=== PATIENT | male | born 1945 | race Caucasian/White ===

== ENCOUNTER 2016-11-05 09:27 | Outpatient (CLI) | payer MEDICARE, OTHER ==
[2012-09-10 11:11] VITALS: BP 122/69
[~2016-11-05 09:27] MED LIST: HEPARIN SODIUM,PORCINE 30 UNITS INJ IV SCH; SALINE FLUSH 10 ML DISP.SYRIN IVF SCH; cefTRIAXone SODIUM 2 GM in 0.9 % SODIUM CHLORIDE 100 ML IV SCH
[2016-11-05] MEDS ORDERED: 0.9 % SODIUM CHLORIDE 100 ML IV.SOLN IV ONE (09:30)
[2016-11-05] MEDS ORDERED: HEPARIN SODIUM,PORCINE 30 UNITS INJ IV ONE (09:30)
[2016-11-05] MEDS ORDERED: SALINE FLUSH 10 ML DISP.SYRIN IVF ONE (09:30)
[2016-11-05] MEDS ORDERED: cefTRIAXone SODIUM 1 GM VIAL ONE (09:30)
== END 2016-11-05 09:30 ==
LOC: INF 09:27
PROVIDERS: ATTEND Internal Medicine
DX: K75.0 Abscess of liver (principal)
CPT/HCPCS: 96365; J0696

== ENCOUNTER 2016-11-06 09:24 | Outpatient (CLI) | payer MEDICARE, OTHER ==
[2012-09-10 11:11] VITALS: BP 122/69
[2016-11-06] MEDS ORDERED: HEPARIN SODIUM,PORCINE 30 UNITS INJ IV ONE (09:30)
[2016-11-06] MEDS ORDERED: cefTRIAXone SODIUM 1 GM VIAL ONE (09:30)
[2016-11-06] MEDS ORDERED: SALINE FLUSH 10 ML DISP.SYRIN IVF ONE (09:30)
[2016-11-06] MEDS ORDERED: 0.9 % SODIUM CHLORIDE 100 ML IV.SOLN IV ONE (09:30)
== END 2016-11-06 09:25 ==
LOC: INF 09:24
PROVIDERS: ATTEND Internal Medicine
DX: K75.0 Abscess of liver (principal)
CPT/HCPCS: 96365; J0696

== ENCOUNTER 2016-11-07 09:02 | Outpatient (CLI) | payer MEDICARE, OTHER ==
[2012-09-10 11:11] VITALS: BP 122/69
[~2016-11-07 09:02] MED LIST changes: +0.9 % SODIUM CHLORIDE 100 ML IV.SOLN IV ONE; +HEPARIN SODIUM,PORCINE 30 UNITS INJ IV ONE; -HEPARIN SODIUM,PORCINE 30 UNITS INJ IV SCH; +SALINE FLUSH 10 ML DISP.SYRIN IVF ONE; -SALINE FLUSH 10 ML DISP.SYRIN IVF SCH; +cefTRIAXone SODIUM 1 GM VIAL ONE; -cefTRIAXone SODIUM 2 GM in 0.9 % SODIUM CHLORIDE 100 ML IV SCH
== END 2016-11-07 09:03 ==
LOC: INF 09:02
PROVIDERS: ATTEND Internal Medicine
DX: K75.0 Abscess of liver (principal)
CPT/HCPCS: 96365; J0696

== ENCOUNTER 2016-11-08 09:07 | Outpatient (CLI) | payer MEDICARE, OTHER ==
[2012-09-10 11:11] VITALS: BP 122/69
== END 2016-11-08 09:10 ==
LOC: INF 09:07
PROVIDERS: ATTEND Internal Medicine
DX: K75.0 Abscess of liver (principal)
CPT/HCPCS: 96365; J0696

== ENCOUNTER 2016-11-09 09:00 | Outpatient (CLI) | payer MEDICARE, OTHER ==
[2012-09-10 11:11] VITALS: BP 122/69
== END 2016-11-09 09:02 ==
LOC: INF 09:00
PROVIDERS: ATTEND Internal Medicine
DX: K75.0 Abscess of liver (principal)
CPT/HCPCS: 96365; J0696

== ENCOUNTER 2016-11-10 09:07 | Outpatient (CLI) | payer MEDICARE, OTHER ==
[2012-09-10 11:11] VITALS: BP 122/69
== END 2016-11-10 09:10 ==
LOC: INF 09:07
PROVIDERS: ATTEND Internal Medicine
DX: K75.0 Abscess of liver (principal)
CPT/HCPCS: 96365; J0696

== ENCOUNTER 2016-11-11 08:54 | Outpatient (CLI) | payer MEDICARE, OTHER ==
[2012-09-10 11:11] VITALS: BP 122/69
[2016-11-11] MEDS ORDERED: HEPARIN SODIUM,PORCINE 30 UNITS INJ IV ONE (09:00)
[2016-11-11] MEDS ORDERED: SALINE FLUSH 10 ML DISP.SYRIN IVF ONE (09:00)
[2016-11-11] MEDS ORDERED: cefTRIAXone SODIUM 1 GM VIAL ONE (09:00)
[2016-11-11] MEDS ORDERED: 0.9 % SODIUM CHLORIDE 100 ML IV.SOLN IV ONE (09:00)
[2016-11-11] MEDS ORDERED: cefTRIAXone SODIUM 2 GM in 0.9 % SODIUM CHLORIDE 100 ML IV SCH (09:00)
== END 2016-11-11 08:55 ==
LOC: INF 08:54
PROVIDERS: ATTEND Internal Medicine
DX: K75.0 Abscess of liver (principal)
CPT/HCPCS: 96365; J0696

== ENCOUNTER 2016-11-12 09:03 | Outpatient (CLI) | payer MEDICARE, OTHER ==
[2012-09-10 11:11] VITALS: BP 122/69
[~2016-11-12 09:03] MED LIST changes: +cefTRIAXone SODIUM 2 GM in 0.9 % SODIUM CHLORIDE 100 ML IV SCH
== END 2016-11-12 09:04 ==
LOC: INF 09:03
PROVIDERS: ATTEND Internal Medicine
DX: K75.0 Abscess of liver (principal)
CPT/HCPCS: 96365; J0696

== ENCOUNTER 2016-11-13 09:04 | Outpatient (CLI) | payer MEDICARE, OTHER ==
[2012-09-10 11:11] VITALS: BP 122/69
== END 2016-11-13 09:05 ==
LOC: INF 09:04
PROVIDERS: ATTEND Internal Medicine
DX: K75.0 Abscess of liver (principal)
CPT/HCPCS: 96365; J0696

== ENCOUNTER 2016-11-14 09:20 | Outpatient (CLI) | payer MEDICARE, OTHER ==
[2012-09-10 11:11] VITALS: BP 122/69
[~2016-11-14 09:20] MED LIST changes: -cefTRIAXone SODIUM 2 GM in 0.9 % SODIUM CHLORIDE 100 ML IV SCH
[2016-11-14] MEDS ORDERED: SALINE FLUSH 10 ML DISP.SYRIN IVF ONE (09:48)
[2016-11-15] MEDS ORDERED: cefTRIAXone SODIUM 2 GM in 0.9 % SODIUM CHLORIDE 100 ML IV SCH (09:00)
== END 2016-11-14 09:21 ==
LOC: INF 09:20
PROVIDERS: ATTEND Internal Medicine
DX: K75.0 Abscess of liver (principal)
CPT/HCPCS: 96365; J0696

== ENCOUNTER 2016-11-15 08:59 | Outpatient (CLI) | payer MEDICARE, OTHER ==
[2012-09-10 11:11] VITALS: BP 122/69
[~2016-11-15 08:59] MED LIST changes: -0.9 % SODIUM CHLORIDE 100 ML IV.SOLN IV ONE; -HEPARIN SODIUM,PORCINE 30 UNITS INJ IV ONE; -SALINE FLUSH 10 ML DISP.SYRIN IVF ONE; -cefTRIAXone SODIUM 1 GM VIAL ONE; +cefTRIAXone SODIUM 2 GM in 0.9 % SODIUM CHLORIDE 100 ML IV SCH
[2016-11-15] MEDS ORDERED: SALINE FLUSH 10 ML DISP.SYRIN IVF ONE (09:00)
[2016-11-15] MEDS ORDERED: cefTRIAXone SODIUM 1 GM VIAL ONE (09:00)
[2016-11-15] MEDS ORDERED: HEPARIN SODIUM,PORCINE 30 UNITS INJ IV ONE (09:00)
[2016-11-15] MEDS ORDERED: 0.9 % SODIUM CHLORIDE 100 ML IV.SOLN IV ONE (09:00)
== END 2016-11-15 09:00 ==
LOC: INF 08:59
PROVIDERS: ATTEND Internal Medicine
DX: K75.0 Abscess of liver (principal)
CPT/HCPCS: 96365; J0696

== ENCOUNTER 2016-11-16 12:51 | Outpatient (CLI) | payer MEDICARE, OTHER ==
[2012-09-10 11:11] VITALS: BP 122/69
[~2016-11-16 12:51] MED LIST changes: +0.9 % SODIUM CHLORIDE 100 ML IV.SOLN IV ONE; +HEPARIN SODIUM,PORCINE 30 UNITS INJ IV ONE; +SALINE FLUSH 10 ML DISP.SYRIN IVF ONE; +cefTRIAXone SODIUM 1 GM VIAL ONE; +cefTRIAXone SODIUM 1 GM in 0.9 % SODIUM CHLORIDE 100 ML IV SCH; -cefTRIAXone SODIUM 2 GM in 0.9 % SODIUM CHLORIDE 100 ML IV SCH
== END 2016-11-16 12:52 ==
LOC: INF 12:51
PROVIDERS: ATTEND Internal Medicine
DX: K75.0 Abscess of liver (principal)
CPT/HCPCS: 96365; J0696

== ENCOUNTER 2016-11-17 08:53 | Outpatient (CLI) | payer MEDICARE, OTHER ==
[2012-09-10 11:11] VITALS: BP 122/69
[2016-11-17] MEDS ORDERED: 0.9 % SODIUM CHLORIDE 100 ML IV.SOLN IV ONE (09:00)
[2016-11-17] MEDS ORDERED: cefTRIAXone SODIUM 1 GM in 0.9 % SODIUM CHLORIDE 100 ML IV SCH (09:00)
[2016-11-17] MEDS ORDERED: SALINE FLUSH 10 ML DISP.SYRIN IVF ONE (09:00)
[2016-11-17] MEDS ORDERED: HEPARIN SODIUM,PORCINE 30 UNITS INJ IV ONE (09:00)
[2016-11-17] MEDS ORDERED: cefTRIAXone SODIUM 1 GM VIAL ONE ×2 (09:00→09:09)
[2016-11-17] MEDS ORDERED: 0.9 % SODIUM CHLORIDE 50 ML IV ONE (09:09)
[2016-11-17] MEDS ORDERED: cefTRIAXone SODIUM 2 GM in 0.9 % SODIUM CHLORIDE 100 ML IV SCH (15:40)
== END 2016-11-17 08:54 ==
LOC: INF 08:53
PROVIDERS: ATTEND Internal Medicine
DX: K75.0 Abscess of liver (principal)
CPT/HCPCS: 96365; J0696

== ENCOUNTER 2016-11-18 08:59 | Outpatient (CLI) | payer MEDICARE, OTHER ==
[2012-09-10 11:11] VITALS: BP 122/69
[2016-11-18] MEDS ORDERED: cefTRIAXone SODIUM 1 GM VIAL ONE (09:00)
[2016-11-18] MEDS ORDERED: SALINE FLUSH 10 ML DISP.SYRIN IVF ONE (09:00)
[2016-11-18] MEDS ORDERED: 0.9 % SODIUM CHLORIDE 100 ML IV.SOLN IV ONE (09:00)
[2016-11-18] MEDS ORDERED: HEPARIN SODIUM,PORCINE 30 UNITS INJ IV ONE (09:00)
[2016-11-19] MEDS ORDERED: cefTRIAXone SODIUM 2 GM in 0.9 % SODIUM CHLORIDE 100 ML IV SCH (09:00)
== END 2016-11-18 09:00 ==
LOC: INF 08:59
PROVIDERS: ATTEND Internal Medicine
DX: K75.0 Abscess of liver (principal)
CPT/HCPCS: 96365; J0696

== ENCOUNTER 2016-11-19 09:00 | Outpatient (CLI) | payer MEDICARE, OTHER ==
[2012-09-10 11:11] VITALS: BP 122/69
[~2016-11-19 09:00] MED LIST changes: -cefTRIAXone SODIUM 1 GM in 0.9 % SODIUM CHLORIDE 100 ML IV SCH
== END 2016-11-19 09:02 ==
LOC: INF 09:00
PROVIDERS: ATTEND Internal Medicine
DX: K75.0 Abscess of liver (principal)
CPT/HCPCS: 96365; J0696

== ENCOUNTER 2016-11-20 08:45 | Outpatient (CLI) | payer MEDICARE, OTHER ==
[2012-09-10 11:11] VITALS: BP 122/69
[2016-11-20] MEDS ORDERED: SALINE FLUSH 10 ML DISP.SYRIN IVF ONE (09:00)
[2016-11-20] MEDS ORDERED: cefTRIAXone SODIUM 1 GM VIAL ONE (09:00)
[2016-11-20] MEDS ORDERED: 0.9 % SODIUM CHLORIDE 100 ML IV.SOLN IV ONE (09:00)
[2016-11-20] MEDS ORDERED: HEPARIN SODIUM,PORCINE 30 UNITS INJ IV ONE (09:00)
== END 2016-11-20 08:46 ==
LOC: INF 08:45
PROVIDERS: ATTEND Internal Medicine
DX: K75.0 Abscess of liver (principal)
CPT/HCPCS: 96365; J0696

== ENCOUNTER 2016-11-21 09:18 | Outpatient (CLI) | payer MEDICARE, OTHER ==
[2012-09-10 11:11] VITALS: BP 122/69
[2016-11-21] MEDS ORDERED: cefTRIAXone SODIUM 2 GM in 0.9 % SODIUM CHLORIDE 100 ML IV ONE (10:00)
== END 2016-11-21 09:20 ==
LOC: INF 09:18
PROVIDERS: ATTEND Internal Medicine
DX: K75.0 Abscess of liver (principal)
CPT/HCPCS: 96365; J0696

== ENCOUNTER 2016-11-22 08:53 | Outpatient (CLI) | payer MEDICARE, OTHER ==
[2012-09-10 11:11] VITALS: BP 122/69
[2016-11-22] MEDS ORDERED: 0.9 % SODIUM CHLORIDE 100 ML IV.SOLN IV ONE (09:00)
[2016-11-22] MEDS ORDERED: SALINE FLUSH 10 ML DISP.SYRIN IVF ONE (09:00)
[2016-11-22] MEDS ORDERED: cefTRIAXone SODIUM 1 GM VIAL ONE (09:00)
[2016-11-22] MEDS ORDERED: HEPARIN SODIUM,PORCINE 30 UNITS INJ IV ONE (09:00)
== END 2016-11-22 08:54 ==
LOC: INF 08:53
PROVIDERS: ATTEND Internal Medicine
DX: K75.0 Abscess of liver (principal)
CPT/HCPCS: 96365; J0696

== ENCOUNTER 2016-11-23 08:57 | Outpatient (CLI) | payer MEDICARE, OTHER ==
[2012-09-10 11:11] VITALS: BP 122/69
[2016-11-23] MEDS ORDERED: HEPARIN SODIUM,PORCINE 30 UNITS INJ IV ONE (09:00)
[2016-11-23] MEDS ORDERED: SALINE FLUSH 10 ML DISP.SYRIN IVF ONE (09:00)
[2016-11-23] MEDS ORDERED: cefTRIAXone SODIUM 1 GM VIAL ONE (09:00)
[2016-11-23] MEDS ORDERED: cefTRIAXone SODIUM 2 GM in 0.9 % SODIUM CHLORIDE 100 ML IV SCH (09:00)
[2016-11-23] MEDS ORDERED: 0.9 % SODIUM CHLORIDE 100 ML IV.SOLN IV ONE (09:00)
== END 2016-11-23 09:00 ==
LOC: INF 08:57
PROVIDERS: ATTEND Internal Medicine
DX: K75.0 Abscess of liver (principal)
CPT/HCPCS: 96365; J0696

== ENCOUNTER 2016-11-24 08:51 | Outpatient (CLI) | payer MEDICARE, OTHER ==
[2012-09-10 11:11] VITALS: BP 122/69
[2016-11-24] MEDS ORDERED: HEPARIN SODIUM,PORCINE 30 UNITS INJ IV ONE (09:00)
[2016-11-24] MEDS ORDERED: cefTRIAXone SODIUM 1 GM VIAL ONE (09:00)
[2016-11-24] MEDS ORDERED: 0.9 % SODIUM CHLORIDE 100 ML IV.SOLN IV ONE (09:00)
[2016-11-24] MEDS ORDERED: SALINE FLUSH 10 ML DISP.SYRIN IVF ONE (09:00)
[2016-11-24] MEDS ORDERED: cefTRIAXone SODIUM 2 GM in 0.9 % SODIUM CHLORIDE 100 ML IV SCH (09:00)
== END 2016-11-24 08:52 ==
LOC: INF 08:51
PROVIDERS: ATTEND Internal Medicine
DX: K75.0 Abscess of liver (principal)
CPT/HCPCS: 96365; J0696

== ENCOUNTER 2016-11-25 07:55 | Outpatient (CLI) | payer MEDICARE, OTHER ==
[2012-09-10 11:11] VITALS: BP 122/69
[2016-11-25] MEDS ORDERED: HEPARIN SODIUM,PORCINE 30 UNITS INJ IV ONE (09:00)
[2016-11-25] MEDS ORDERED: 0.9 % SODIUM CHLORIDE 100 ML IV.SOLN IV ONE (09:00)
[2016-11-25] MEDS ORDERED: cefTRIAXone SODIUM 1 GM VIAL ONE (09:00)
[2016-11-25] MEDS ORDERED: cefTRIAXone SODIUM 2 GM in 0.9 % SODIUM CHLORIDE 100 ML IV SCH (09:00)
[2016-11-25] MEDS ORDERED: SALINE FLUSH 10 ML DISP.SYRIN IVF ONE (09:00)
== END 2016-11-25 07:56 ==
LOC: INF 07:55
PROVIDERS: ATTEND Internal Medicine
DX: K75.0 Abscess of liver (principal)
CPT/HCPCS: 96365; J0696

== ENCOUNTER 2016-11-26 08:45 | Outpatient (CLI) | payer MEDICARE, OTHER ==
[2012-09-10 11:11] VITALS: BP 122/69
[2016-11-26] MEDS ORDERED: 0.9 % SODIUM CHLORIDE 100 ML IV.SOLN IV ONE (09:00)
[2016-11-26] MEDS ORDERED: SALINE FLUSH 10 ML DISP.SYRIN IVF ONE (09:00)
[2016-11-26] MEDS ORDERED: HEPARIN SODIUM,PORCINE 30 UNITS INJ IV ONE (09:00)
[2016-11-26] MEDS ORDERED: cefTRIAXone SODIUM 1 GM VIAL ONE (09:00)
== END 2016-11-26 08:46 ==
LOC: INF 08:45
PROVIDERS: ATTEND Internal Medicine
DX: K75.0 Abscess of liver (principal)
CPT/HCPCS: 96365; J0696

== ENCOUNTER 2016-11-27 08:34 | Outpatient (CLI) | payer MEDICARE, OTHER ==
[2012-09-10 11:11] VITALS: BP 122/69
[2016-11-27] MEDS ORDERED: 0.9 % SODIUM CHLORIDE 100 ML IV.SOLN IV ONE (09:00)
[2016-11-27] MEDS ORDERED: cefTRIAXone SODIUM 1 GM VIAL ONE (09:00)
[2016-11-27] MEDS ORDERED: HEPARIN SODIUM,PORCINE 30 UNITS INJ IV ONE (09:00)
[2016-11-27] MEDS ORDERED: SALINE FLUSH 10 ML DISP.SYRIN IVF ONE (09:00)
== END 2016-11-27 08:36 ==
LOC: INF 08:34
PROVIDERS: ATTEND Pediatrics
DX: K75.0 Abscess of liver (principal)
CPT/HCPCS: 96365; J0696

== ENCOUNTER 2016-11-28 08:47 | Outpatient (CLI) | payer MEDICARE, OTHER ==
[2012-09-10 11:11] VITALS: BP 122/69
[~2016-11-28 08:47] MED LIST changes: +0.9 % SODIUM CHLORIDE 100 ML IV ONE; -0.9 % SODIUM CHLORIDE 100 ML IV.SOLN IV ONE; -HEPARIN SODIUM,PORCINE 30 UNITS INJ IV ONE
[2016-11-28] MEDS ORDERED: cefTRIAXone SODIUM 2 GM in 0.9 % SODIUM CHLORIDE 100 ML IV SCH (09:00)
[2016-11-28] MEDS ORDERED: SALINE FLUSH 10 ML DISP.SYRIN IVF ONE (09:00)
[2016-11-28] MEDS ORDERED: cefTRIAXone SODIUM 1 GM VIAL ONE (09:00)
[2016-11-28] MEDS ORDERED: 0.9 % SODIUM CHLORIDE 100 ML IV.SOLN IV ONE (09:00)
[2016-11-28] MEDS ORDERED: HEPARIN SODIUM,PORCINE 30 UNITS INJ IV ONE (09:00)
== END 2016-11-28 08:50 ==
LOC: INF 08:47
PROVIDERS: ATTEND Pediatrics
DX: K75.0 Abscess of liver (principal)
CPT/HCPCS: J0696 ×3; 96365

== ENCOUNTER 2016-11-29 08:49 | Outpatient (CLI) | payer MEDICARE, OTHER ==
[2012-09-10 11:11] VITALS: BP 122/69
[~2016-11-29 08:49] MED LIST changes: -0.9 % SODIUM CHLORIDE 100 ML IV ONE; +HEPARIN SODIUM,PORCINE 30 UNITS INJ IV ONE; -cefTRIAXone SODIUM 1 GM VIAL ONE
[2016-11-29] MEDS ORDERED: SALINE FLUSH 10 ML DISP.SYRIN IVF ONE ×2 (08:56→09:00)
[2016-11-29] MEDS ORDERED: HEPARIN SODIUM,PORCINE 30 UNITS INJ IV ONE ×2 (08:56→09:00)
[2016-11-29] MEDS ORDERED: cefTRIAXone SODIUM 1 GM VIAL ONE (09:00)
[2016-11-29] MEDS ORDERED: 0.9 % SODIUM CHLORIDE 100 ML IV.SOLN IV ONE (09:00)
== END 2016-11-29 08:50 ==
LOC: INF 08:49
PROVIDERS: ATTEND Pediatrics
DX: K75.0 Abscess of liver (principal)
CPT/HCPCS: 96365; J0696

== ENCOUNTER 2016-11-30 08:56 | Outpatient (CLI) | payer MEDICARE, OTHER ==
[2012-09-10 11:11] VITALS: BP 122/69
[2016-11-30] MEDS ORDERED: SALINE FLUSH 10 ML DISP.SYRIN IVF ONE (09:00)
[2016-11-30] MEDS ORDERED: 0.9 % SODIUM CHLORIDE 100 ML IV.SOLN IV ONE (09:00)
[2016-11-30] MEDS ORDERED: cefTRIAXone SODIUM 2 GM in 0.9 % SODIUM CHLORIDE 100 ML IV SCH (09:00)
[2016-11-30] MEDS ORDERED: HEPARIN SODIUM,PORCINE 30 UNITS INJ IV ONE (09:00)
[2016-11-30] MEDS ORDERED: cefTRIAXone SODIUM 1 GM VIAL ONE (09:00)
[2016-12-01 14:03] VITALS: BP 136/107
== END 2016-11-30 08:57 ==
LOC: INF 08:56
PROVIDERS: ATTEND Pediatrics
DX: K75.0 Abscess of liver (principal)
CPT/HCPCS: 96365; J0696

== ENCOUNTER 2016-12-01 08:56 | Outpatient (CLI) | payer MEDICARE, OTHER ==
[2012-09-10 11:11] VITALS: BP 122/69
[2016-12-01] MEDS ORDERED: HEPARIN SODIUM,PORCINE 30 UNITS INJ IV ONE (09:00)
[2016-12-01] MEDS ORDERED: cefTRIAXone SODIUM 1 GM VIAL ONE (09:00)
[2016-12-01] MEDS ORDERED: SALINE FLUSH 10 ML DISP.SYRIN IVF ONE (09:00)
[2016-12-01] MEDS ORDERED: cefTRIAXone SODIUM 2 GM in 0.9 % SODIUM CHLORIDE 100 ML IV SCH (09:00)
[2016-12-01] MEDS ORDERED: 0.9 % SODIUM CHLORIDE 100 ML IV.SOLN IV ONE (09:00)
[2016-12-01 14:03] VITALS: BP 136/107
== END 2016-12-01 08:57 ==
LOC: INF 08:56
PROVIDERS: ATTEND Pediatrics
DX: Z53.9 Procedure and treatment not carried out, unspecified reason (principal)
CPT/HCPCS: J0696

== ENCOUNTER → 2016-12-01 | Emergency (ER) | payer MEDICARE, OTHER ==
[~2016-12-01] MED LIST changes: +0.9 % SODIUM CHLORIDE 500 ML IV ONE; +ASPIRIN 81 MG CHEW TAB PO ONE; +HEPARIN SODIUM 5000 UNIT/1 ML IV ONE; -HEPARIN SODIUM,PORCINE 30 UNITS INJ IV ONE; +HEPARIN SODIUM,PORCINE/D5W 20,000 UNIT in PREMIX BAG 1 BAG IV ONE; -SALINE FLUSH 10 ML DISP.SYRIN IVF ONE
--- NOTE | 2016-12-01 10:01 | ED Physician Documentation ---
General Adult - HISTORIAN Historian: patient - HPI Stated Complaint: chest pain, sob Chief Complaint: General Adult Onset: minutes Timing: still present Severity: moderate Further Comments: yes (Pt is a 71 yo male who had sob and some chest heaviness while walking from his car to the infusion clinic. Pt is getting abx infusions for a liver abscess. Pt felt dizzy and sob and had to stop and sit down. Pt had some slight nausea and some slight chest pressure. No diaphoresis. Pt does not have previous cardiac hx. 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 Pt is tx'd with Rocephin 2 gm IV daily via PICC line and with Flagyl daily.) - ROS CONST: weakness, other (dizziness) EYES/ENT: none CVS/RESP: chest pain (heaviness), shortness of breath GI/: nausea MS/SKIN/LYMPH: none NEURO/PSYCH: dizziness - PAST HX Past History: hypertension, other (DMII, HLD, Liver abscess, migraine, early Alzheimer's, TBI) Other History: none Surgeries/Procedures: other (appendectomy, tonsillectomy, lumbar fusion) Allergies/Adverse Reactions: Allergies Allergy/AdvReac Type Severity Reaction Status Date / Time No Known Allergies Allergy Verified 11/19/16 18:05 Home Medications: Ambulatory Orders Medication Instructions Recorded Metoprolol Succinate [Toprol Xl] 100 mg PO DAILY 09/05/12 Rosuvastatin Calcium [Crestor] 10 mg PO DAILY 09/05/12 Butalb/Acetaminophen/Caffeine 1 tab PO TID PRN MDD 3 tabs 12/01/16 [[id number]-[id number] 50-325-40] Donepezil HCl [Donepezil HCl] 10 mg PO DAILY 12/01/16 Fexofenadine HCl [Cierra] 180 mg PO DAILY 12/01/16 Metronidazole [Flagyl] 500 mg PO BID 12/01/16 cefTRIAXone SODIUM [Rocephin] 2 gm IJ DAILY 12/01/16 - SOCIAL HX Smoking History: non-smoker - FAMILY HX Family History: No - VITAL SIGNS Vital Signs: Vital Signs Temp Pulse Resp BP Pulse Ox 122/69 09/10/12 11:09 - REVIEWED ASSESSMENTS Nursing Assessment Reviewed: Yes Vitals Reviewed: Yes Progress - Progress Progress: ASA [address] Chest with PE protocol: 1. Saddle embolus with large pulmonary emboli in the main pulmonary arteries greater on the left. 2. Right ventricular strain. Pt stable. Heparin 5000 units bolus. Transfer to [facility], Dr. Tracy Ma - EKG/XRAY/CT EKG: rhythm (sinus tachycardia DC=741; normal [place] interval; normal axis.) XRAY: chest (Low lung volumes, possibly related to obesity.) ED Results Lab/Radiology - Orders Orders: ED Orders Category Date Time Status Continuous EKG monitoring Q30M Care 12/01/16 09:55 Ordered Continuous Pulse Oximetry Q30M Care 12/01/16 09:[address] Saline Lock/IV NOW Care 12/01/16 09:55 Ordered CHEST 1 VIEW [RAD] Stat Exams 12/01/16 09:55 Ordered CBC/PLATELET/DIFF Routine Lab 12/01/16 09:55 Ordered CKMB Stat Lab 12/01/16 Ordered CMP Routine Lab 12/01/16 09:55 Ordered CREATINE KINASE Routine Lab 12/01/16 09:55 Ordered TROPONIN I (cTnI) Stat Lab 12/01/16 09:55 Ordered Aspirin Med 12/01/16 09:55 Once 324 mg PO NOW ONE Oxygen Daily Oxygen 12/01/16 10:00 Ordered EKG WITH COMPARISON Stat Ther 12/01/16 09:55 Ordered General Adult Physical Exam - PHYSICAL EXAM GENERAL APPEARANCE: mild distress EENT: pharynx normal NECK: normal inspection, supple RESPIRATORY: no resp distress, chest non-tender, breath sounds normal CVS: bradycardia ABDOMEN: soft, no organomegaly, normal bowel sounds BACK: normal inspection, no CVA tenderness SKIN: warm/dry, normal color EXTREMITIES: non-tender, normal range of motion, no evidence of injury, no edema NEURO: oriented X3, motor nml, sensation nml Discharge Clincal Impression: Pulmonary embolism Qualifiers: Pulmonary embolism type: saddle Chronicity: acute Acute cor pulmonale presence : with acute cor pulmonale Qualified Code(s): I26.02 - Saddle embolus of pulmonary artery with acute cor pulmonale Referrals: Tracy Ma MD [Primary Care Provider] - 2 Days Home Medications: Ambulatory Orders Metoprolol Succinate [Toprol Xl] 100 mg PO DAILY 09/05/12 Rosuvastatin Calcium [Crestor] 10 mg PO DAILY 09/05/12 Butalb/Acetaminophen/Caffeine [Mvarxb-Hzjgoypl-Jlgx 50-325-40] 1 tab PO TID PRN MDD 3 tabs 12/01/16 Donepezil HCl [Donepezil HCl] 10 mg PO DAILY 12/01/16 Fexofenadine HCl [Ceirra] 180 mg PO DAILY 12/01/16 Metronidazole [Flagyl] 500 mg PO BID 12/01/16 cefTRIAXone SODIUM [Rocephin] 2 gm IJ DAILY 12/01/16 Condition: Stable Disposition: 02 XFER SHT-TRM HOSP Decision to Admit: NO Decision Time: 13:05
[2016-12-01 10:23] LABS: BASOPHILS % 0.4 (0.0-1.5); EOSINOPHILS % 0.7 % (0.0-6.8); MEAN CORPUSCULAR HEMOGLOBIN 26.2 pg (28.0-34.0); MEAN CORPUSCULAR VOLUME 84.3 fl (80.0-100.0); MONOCYTES % 4.6 % (0.0-11.0); NEUTROPHILS # 8.6 # k/uL (1.4-7.7)
[2016-12-01 10:25] LABS: eGFR (African) > 60; eGFR (Non-African) > 60
[2016-12-01 14:03] VITALS: BP 136/107
--- NOTE | 2016-12-01 20:16 | Diagnostic Imaging Report ---
[facility] [id number] [facility] [address] [place], [place]. [address] ~ ~ ~ ~ Report Submission Date: December 01, 2016 10:54:47 AM CDT Patient ~ Study Name: FATOUMATA RICO ~ Date: December 01, 2016 10:00:56 AM CDT ~ Modality Type: CR Gender: M ~ Description: CHEST : 47 ~ Institution: [facility] Physician MARK ESPINO ~ ~ ~ PORTABLE CHEST HISTORY: ~ CHEST PAIN AND WEAKNESS FINDINGS: ~ A superior vena cava vascular access catheter, low lung volumes, obesity, and hiatal hernia are observed. ~The lungs are clear. ~No pleural effusions are observed. ~Heart size and pulmonary vascularity are normal. ~Osseous structures are unremarkable. IMPRESSION: ~ Low lung volumes, possibly related to obesity. ~ Hiatal hernia and superior vena cava PICC. ~ Electronically signed on December 01, 2016 10:54:47 AM CDT by: Sharif MUNOZ
--- NOTE | 2016-12-01 20:19 | Diagnostic Imaging Report ---
MARK ESPINO~ [facility] [address] [facility] [address] [place] [address]. [address] ~ ~ ~ ~ Report Submission Date: December 01, 2016 12:41:16 PM CDT Patient ~ Study Name: FATOUMATA RICO ~ Date: December 01, 2016 12:07:19 PM CDT ~ Modality Type: CT\SR Gender: M ~ Description: CT ANGIOGRAPHY CHEST 7 : 47 ~ Institution: [facility] Physician: MARK ESPINO ~ ~ ~ ~ CT angiography of the chest Clinical history: ~Elevated D-dimer. ~Shortness of breath. ~Chest pain. ~Rule out pulmonary embolus. Contrast administered: ~94 ml Omnipaque-300. Technique: ~CT pulmonary angiography is performed with intravenous infusion of contrast. ~Sliding coronal and sagittal MIP reconstructions are performed by the technologist. Findings: ~The lungs are free of coalescent infiltrate. ~The central airways are patent. ~Motion artifact blurs the vascular structures in the lung bases. ~ There is a saddle pulmonary embolus extending into the main pulmonary arteries bilaterally that is more extensive on the left essentially filling the left lower lobe pulmonary artery with large embolus in the left upper lobe. ~There are small emboli in the right lower and upper lobe arteries. ~There is bowing of the interventricular septum into the left ventricle consistent with right ventricular strain. Impression: ~ 1. ~Saddle embolus with large pulmonary emboli in the main pulmonary arteries greater on the left. ~ 2. ~Right ventricular strain. 3. ~Critical results phoned to the emergency room physician at 1238 hours. ~ Electronically signed on December 01, 2016 12:41:16 PM CDT by: Nahun MUNOZ
== END | disposition short-term general hospital (02) ==
LOC: ED 09:50
DX: I26.02 Saddle embolus of pulmonary artery with acute cor pulmonale (principal)
CPT/HCPCS: 71010; 71275; 80053; 82550; 82553; 83880; 84484; 85025; 85379; 85610; 85730; 93005; J1644; J7060; Q9966; 96374; 99284; S1016

== ENCOUNTER 2016-12-08 08:45 | Outpatient (CLI) | payer MEDICARE, OTHER ==
[2016-12-08] MEDS ORDERED: cefTRIAXone SODIUM 1 GM VIAL ONE (09:00)
[2016-12-08] MEDS ORDERED: HEPARIN SODIUM,PORCINE 30 UNITS INJ IV ONE (09:00)
[2016-12-08] MEDS ORDERED: 0.9 % SODIUM CHLORIDE 100 ML IV.SOLN IV ONE (09:00)
[2016-12-08] MEDS ORDERED: cefTRIAXone SODIUM 2 GM in 0.9 % SODIUM CHLORIDE 100 ML IV SCH (09:00)
[2016-12-08] MEDS ORDERED: SALINE FLUSH 10 ML DISP.SYRIN IVF ONE (09:00)
== END 2016-12-08 08:46 ==
LOC: INF 08:45
PROVIDERS: ATTEND Pediatrics
DX: K75.0 Abscess of liver (principal)
CPT/HCPCS: 96365; J0696

== ENCOUNTER 2016-12-09 09:04 | Outpatient (CLI) | payer MEDICARE, OTHER ==
[~2016-12-09 09:04] MED LIST changes: +0.9 % SODIUM CHLORIDE 100 ML IV.SOLN IV ONE; -0.9 % SODIUM CHLORIDE 500 ML IV ONE; -ASPIRIN 81 MG CHEW TAB PO ONE; -HEPARIN SODIUM 5000 UNIT/1 ML IV ONE; +HEPARIN SODIUM,PORCINE 30 UNITS INJ IV ONE; -HEPARIN SODIUM,PORCINE/D5W 20,000 UNIT in PREMIX BAG 1 BAG IV ONE; +SALINE FLUSH 10 ML DISP.SYRIN IVF ONE; +cefTRIAXone SODIUM 1 GM VIAL ONE; +cefTRIAXone SODIUM 2 GM in 0.9 % SODIUM CHLORIDE 100 ML IV SCH
== END 2016-12-09 09:05 ==
LOC: INF 09:04
PROVIDERS: ATTEND Pediatrics
DX: K75.0 Abscess of liver (principal)
CPT/HCPCS: 96365; J0696

== ENCOUNTER 2016-12-10 08:34 | Outpatient (CLI) | payer MEDICARE, OTHER ==
[2016-12-10] MEDS ORDERED: cefTRIAXone SODIUM 1 GM VIAL ONE (09:00)
[2016-12-10] MEDS ORDERED: SALINE FLUSH 10 ML DISP.SYRIN IVF ONE (09:00)
[2016-12-10] MEDS ORDERED: HEPARIN SODIUM,PORCINE 30 UNITS INJ IV ONE (09:00)
[2016-12-10] MEDS ORDERED: 0.9 % SODIUM CHLORIDE 100 ML IV.SOLN IV ONE (09:00)
[2016-12-10] MEDS ORDERED: cefTRIAXone SODIUM 2 GM in 0.9 % SODIUM CHLORIDE 100 ML IV SCH (09:00)
== END 2016-12-10 08:35 ==
LOC: INF 08:34
PROVIDERS: ATTEND Pediatrics
DX: K75.0 Abscess of liver (principal)
CPT/HCPCS: 96365; J0696

== ENCOUNTER 2016-12-11 08:38 | Outpatient (CLI) | payer MEDICARE, OTHER ==
[~2016-12-11 08:38] MED LIST changes: -0.9 % SODIUM CHLORIDE 100 ML IV.SOLN IV ONE; -HEPARIN SODIUM,PORCINE 30 UNITS INJ IV ONE; -SALINE FLUSH 10 ML DISP.SYRIN IVF ONE; -cefTRIAXone SODIUM 1 GM VIAL ONE
[2016-12-11] MEDS ORDERED: HEPARIN SODIUM,PORCINE 30 UNITS INJ IV ONE (09:00)
[2016-12-11] MEDS ORDERED: SALINE FLUSH 10 ML DISP.SYRIN IVF ONE (09:00)
[2016-12-11] MEDS ORDERED: cefTRIAXone SODIUM 1 GM VIAL ONE (09:00)
[2016-12-11] MEDS ORDERED: 0.9 % SODIUM CHLORIDE 100 ML IV.SOLN IV ONE (09:00)
== END 2016-12-11 08:40 ==
LOC: INF 08:38
PROVIDERS: ATTEND Pediatrics
DX: K75.0 Abscess of liver (principal)
CPT/HCPCS: 96365; J0696

== ENCOUNTER 2016-12-12 08:56 | Outpatient (CLI) | payer MEDICARE, OTHER ==
[2016-12-12] MEDS ORDERED: HEPARIN SODIUM,PORCINE 30 UNITS INJ IV ONE (09:00)
[2016-12-12] MEDS ORDERED: SALINE FLUSH 10 ML DISP.SYRIN IVF ONE (09:00)
[2016-12-12] MEDS ORDERED: 0.9 % SODIUM CHLORIDE 100 ML IV.SOLN IV ONE (09:00)
[2016-12-12] MEDS ORDERED: cefTRIAXone SODIUM 1 GM VIAL ONE (09:00)
[2016-12-12] MEDS ORDERED: cefTRIAXone SODIUM 2 GM in 0.9 % SODIUM CHLORIDE 100 ML IV SCH (09:00)
== END 2016-12-12 08:57 ==
LOC: INF 08:56
PROVIDERS: ATTEND Pediatrics
DX: K75.0 Abscess of liver (principal)
CPT/HCPCS: 96365; J0696

== ENCOUNTER 2016-12-13 08:37 | Outpatient (CLI) | payer MEDICARE, OTHER ==
[2016-12-13] MEDS ORDERED: cefTRIAXone SODIUM 2 GM in 0.9 % SODIUM CHLORIDE 100 ML IV SCH (09:00)
[2016-12-13] MEDS ORDERED: 0.9 % SODIUM CHLORIDE 100 ML IV.SOLN IV ONE (09:00)
[2016-12-13] MEDS ORDERED: cefTRIAXone SODIUM 1 GM VIAL ONE (09:00)
[2016-12-13] MEDS ORDERED: SALINE FLUSH 10 ML DISP.SYRIN IVF ONE (09:00)
[2016-12-13] MEDS ORDERED: HEPARIN SODIUM,PORCINE 30 UNITS INJ IV ONE (09:00)
== END 2016-12-13 08:40 ==
LOC: INF 08:37
PROVIDERS: ATTEND Pediatrics
DX: K75.0 Abscess of liver (principal)
CPT/HCPCS: 96365; J0696

== ENCOUNTER 2016-12-14 08:36 | Outpatient (CLI) | payer MEDICARE, OTHER ==
[2016-12-14] MEDS ORDERED: HEPARIN SODIUM,PORCINE 30 UNITS INJ IV ONE (09:00)
[2016-12-14] MEDS ORDERED: cefTRIAXone SODIUM 2 GM in 0.9 % SODIUM CHLORIDE 100 ML IV SCH (09:00)
[2016-12-14] MEDS ORDERED: SALINE FLUSH 10 ML DISP.SYRIN IVF ONE (09:00)
[2016-12-14] MEDS ORDERED: 0.9 % SODIUM CHLORIDE 100 ML IV.SOLN IV ONE (09:00)
[2016-12-14] MEDS ORDERED: cefTRIAXone SODIUM 1 GM VIAL ONE (09:00)
== END 2016-12-14 08:37 ==
LOC: INF 08:36
PROVIDERS: ATTEND Pediatrics
DX: K75.0 Abscess of liver (principal)
CPT/HCPCS: 96365; J0696

== ENCOUNTER 2016-12-15 08:53 | Outpatient (CLI) | payer MEDICARE, OTHER ==
[2016-12-15] MEDS ORDERED: cefTRIAXone SODIUM 1 GM VIAL ONE (09:00)
[2016-12-15] MEDS ORDERED: HEPARIN SODIUM,PORCINE 30 UNITS INJ IV ONE (09:00)
[2016-12-15] MEDS ORDERED: 0.9 % SODIUM CHLORIDE 100 ML IV.SOLN IV ONE (09:00)
[2016-12-15] MEDS ORDERED: SALINE FLUSH 10 ML DISP.SYRIN IVF ONE (09:00)
[2016-12-15] MEDS ORDERED: cefTRIAXone SODIUM 1 GM in 0.9 % SODIUM CHLORIDE 100 ML IV SCH (09:00)
== END 2016-12-15 08:54 ==
LOC: INF 08:53
PROVIDERS: ATTEND Pediatrics
DX: K75.0 Abscess of liver (principal)
CPT/HCPCS: 96365; J0696

== ENCOUNTER 2016-12-16 08:40 | Outpatient (CLI) | payer MEDICARE, OTHER ==
[2016-12-16] MEDS ORDERED: SALINE FLUSH 10 ML DISP.SYRIN IVF ONE (09:00)
[2016-12-16] MEDS ORDERED: cefTRIAXone SODIUM 1 GM VIAL ONE (09:00)
[2016-12-16] MEDS ORDERED: 0.9 % SODIUM CHLORIDE 100 ML IV.SOLN IV ONE (09:00)
[2016-12-16] MEDS ORDERED: HEPARIN SODIUM,PORCINE 30 UNITS INJ IV ONE (09:00)
== END 2016-12-16 08:42 ==
LOC: INF 08:40
PROVIDERS: ATTEND Pediatrics
DX: K75.0 Abscess of liver (principal)
CPT/HCPCS: 96365; J0696

== ENCOUNTER 2016-12-17 08:34 | Outpatient (CLI) | payer MEDICARE, OTHER ==
[2016-12-17] MEDS ORDERED: HEPARIN SODIUM,PORCINE 30 UNITS INJ IV ONE (09:00)
[2016-12-17] MEDS ORDERED: 0.9 % SODIUM CHLORIDE 100 ML IV.SOLN IV ONE (09:00)
[2016-12-17] MEDS ORDERED: cefTRIAXone SODIUM 1 GM VIAL ONE (09:00)
[2016-12-17] MEDS ORDERED: SALINE FLUSH 10 ML DISP.SYRIN IVF ONE (09:00)
== END 2016-12-17 08:35 ==
LOC: INF 08:34
PROVIDERS: ATTEND Pediatrics
DX: K75.0 Abscess of liver (principal)
CPT/HCPCS: 96365; J0696

== ENCOUNTER 2016-12-18 08:32 | Outpatient (CLI) | payer MEDICARE, OTHER ==
[2016-12-18] MEDS ORDERED: SALINE FLUSH 10 ML DISP.SYRIN IVF ONE (09:00)
[2016-12-18] MEDS ORDERED: 0.9 % SODIUM CHLORIDE 100 ML IV.SOLN IV ONE (09:00)
[2016-12-18] MEDS ORDERED: cefTRIAXone SODIUM 1 GM VIAL ONE (09:00)
[2016-12-18] MEDS ORDERED: HEPARIN SODIUM,PORCINE 30 UNITS INJ IV ONE (09:00)
== END 2016-12-19 08:33 ==
LOC: INF 08:32
PROVIDERS: ATTEND Pediatrics
DX: K75.0 Abscess of liver (principal)
CPT/HCPCS: 96365; J0696

== ENCOUNTER 2016-12-19 08:52 | Outpatient (CLI) | payer MEDICARE, OTHER ==
[~2016-12-19 08:52] MED LIST changes: +0.9 % SODIUM CHLORIDE 100 ML IV ONE; +cefTRIAXone SODIUM 1 GM VIAL ONE; -cefTRIAXone SODIUM 2 GM in 0.9 % SODIUM CHLORIDE 100 ML IV SCH
[2016-12-19] MEDS ORDERED: cefTRIAXone SODIUM 2 GM in 0.9 % SODIUM CHLORIDE 100 ML IV SCH (09:00)
[2016-12-19] MEDS ORDERED: 0.9 % SODIUM CHLORIDE 100 ML IV.SOLN IV ONE (09:00)
[2016-12-19] MEDS ORDERED: SALINE FLUSH 10 ML DISP.SYRIN IVF ONE (09:00)
[2016-12-19] MEDS ORDERED: HEPARIN SODIUM,PORCINE 30 UNITS INJ IV ONE (09:00)
[2016-12-19] MEDS ORDERED: cefTRIAXone SODIUM 1 GM VIAL ONE (09:00)
== END 2016-12-19 08:53 ==
LOC: INF 08:52
PROVIDERS: ATTEND Pediatrics
DX: K75.0 Abscess of liver (principal)
CPT/HCPCS: J0696 ×3; 96365

== ENCOUNTER 2016-12-20 08:47 | Outpatient (CLI) | payer MEDICARE, OTHER ==
[2016-12-20] MEDS ORDERED: cefTRIAXone SODIUM 1 GM VIAL ONE (09:00)
[2016-12-20] MEDS ORDERED: SALINE FLUSH 10 ML DISP.SYRIN IVF ONE (09:00)
[2016-12-20] MEDS ORDERED: HEPARIN SODIUM,PORCINE 30 UNITS INJ IV ONE (09:00)
[2016-12-20] MEDS ORDERED: cefTRIAXone SODIUM 2 GM in 0.9 % SODIUM CHLORIDE 100 ML IV SCH (09:00)
[2016-12-20] MEDS ORDERED: 0.9 % SODIUM CHLORIDE 100 ML IV.SOLN IV ONE (09:00)
== END 2016-12-20 08:50 ==
LOC: INF 08:47
PROVIDERS: ATTEND Pediatrics
DX: K75.0 Abscess of liver (principal)
CPT/HCPCS: 96365; J0696

== ENCOUNTER 2016-12-21 08:37 | Outpatient (CLI) | payer MEDICARE, OTHER ==
[2016-12-21] MEDS ORDERED: cefTRIAXone SODIUM 2 GM in 0.9 % SODIUM CHLORIDE 100 ML IV SCH (09:00)
[2016-12-21] MEDS ORDERED: SALINE FLUSH 10 ML DISP.SYRIN IVF ONE (09:00)
[2016-12-21] MEDS ORDERED: cefTRIAXone SODIUM 1 GM VIAL ONE (09:00)
[2016-12-21] MEDS ORDERED: HEPARIN SODIUM,PORCINE 30 UNITS INJ IV ONE (09:00)
[2016-12-21] MEDS ORDERED: 0.9 % SODIUM CHLORIDE 100 ML IV.SOLN IV ONE (09:00)
== END 2016-12-21 08:40 ==
LOC: INF 08:37
PROVIDERS: ATTEND Pediatrics
DX: K75.0 Abscess of liver (principal)
CPT/HCPCS: 96365; J0696

== ENCOUNTER 2016-12-22 08:55 | Outpatient (CLI) | payer MEDICARE, OTHER ==
[2016-12-22] MEDS ORDERED: cefTRIAXone SODIUM 2 GM in 0.9 % SODIUM CHLORIDE 100 ML IV SCH (09:00)
[2016-12-22] MEDS ORDERED: HEPARIN SODIUM,PORCINE 30 UNITS INJ IV ONE (09:00)
[2016-12-22] MEDS ORDERED: 0.9 % SODIUM CHLORIDE 100 ML IV.SOLN IV ONE (09:00)
[2016-12-22] MEDS ORDERED: SALINE FLUSH 10 ML DISP.SYRIN IVF ONE (09:00)
[2016-12-22] MEDS ORDERED: cefTRIAXone SODIUM 1 GM VIAL ONE (09:00)
== END 2016-12-22 08:56 ==
LOC: INF 08:55
PROVIDERS: ATTEND Pediatrics
DX: K75.0 Abscess of liver (principal)
CPT/HCPCS: 96365; J0696

== ENCOUNTER 2016-12-23 08:38 | Outpatient (CLI) | payer MEDICARE, OTHER ==
[2016-12-23] MEDS ORDERED: HEPARIN SODIUM,PORCINE 30 UNITS INJ IV ONE (09:00)
[2016-12-23] MEDS ORDERED: SALINE FLUSH 10 ML DISP.SYRIN IVF ONE (09:00)
[2016-12-23] MEDS ORDERED: cefTRIAXone SODIUM 2 GM in 0.9 % SODIUM CHLORIDE 100 ML IV SCH (09:00)
[2016-12-23] MEDS ORDERED: cefTRIAXone SODIUM 1 GM VIAL ONE (09:00)
[2016-12-23] MEDS ORDERED: 0.9 % SODIUM CHLORIDE 100 ML IV.SOLN IV ONE (09:00)
== END 2016-12-23 08:40 ==
LOC: INF 08:38
PROVIDERS: ATTEND Pediatrics
DX: K75.0 Abscess of liver (principal)
CPT/HCPCS: 96365; J0696

== ENCOUNTER 2016-12-24 08:35 | Outpatient (CLI) | payer MEDICARE, OTHER ==
[2016-12-24] MEDS ORDERED: HEPARIN SODIUM,PORCINE 30 UNITS INJ IV ONE (09:00)
[2016-12-24] MEDS ORDERED: cefTRIAXone SODIUM 1 GM VIAL ONE (09:00)
[2016-12-24] MEDS ORDERED: cefTRIAXone SODIUM 2 GM in 0.9 % SODIUM CHLORIDE 100 ML IV SCH (09:00)
[2016-12-24] MEDS ORDERED: SALINE FLUSH 10 ML DISP.SYRIN IVF ONE (09:00)
[2016-12-24] MEDS ORDERED: 0.9 % SODIUM CHLORIDE 100 ML IV.SOLN IV ONE (09:00)
== END 2016-12-24 08:36 ==
LOC: INF 08:35
PROVIDERS: ATTEND Pediatrics
DX: K75.0 Abscess of liver (principal)
CPT/HCPCS: 96365; J0696

== ENCOUNTER 2016-12-25 08:32 | Outpatient (CLI) | payer MEDICARE, OTHER ==
[2016-12-25] MEDS ORDERED: cefTRIAXone SODIUM 2 GM in 0.9 % SODIUM CHLORIDE 100 ML IV SCH (09:00)
[2016-12-25] MEDS ORDERED: SALINE FLUSH 10 ML DISP.SYRIN IVF ONE (09:00)
[2016-12-25] MEDS ORDERED: HEPARIN SODIUM,PORCINE 30 UNITS INJ IV ONE (09:00)
[2016-12-25] MEDS ORDERED: cefTRIAXone SODIUM 1 GM VIAL ONE (09:00)
[2016-12-25] MEDS ORDERED: 0.9 % SODIUM CHLORIDE 100 ML IV.SOLN IV ONE (09:00)
== END 2016-12-25 08:33 ==
LOC: INF 08:32
PROVIDERS: ATTEND Pediatrics
DX: K75.0 Abscess of liver (principal)
CPT/HCPCS: 96365; J0696

== ENCOUNTER 2016-12-26 07:41 | Outpatient (CLI) | payer MEDICARE, OTHER ==
[2016-12-26] MEDS ORDERED: SALINE FLUSH 10 ML DISP.SYRIN IVF ONE (08:00)
[2016-12-26] MEDS ORDERED: HEPARIN SODIUM,PORCINE 30 UNITS INJ IV ONE (08:00)
[2016-12-26] MEDS ORDERED: 0.9 % SODIUM CHLORIDE 100 ML IV.SOLN IV ONE (08:00)
[2016-12-26] MEDS ORDERED: cefTRIAXone SODIUM 1 GM VIAL ONE (08:00)
[2016-12-26] MEDS ORDERED: cefTRIAXone SODIUM 2 GM in 0.9 % SODIUM CHLORIDE 100 ML IV SCH (09:00)
== END 2016-12-26 07:42 ==
LOC: INF 07:41
PROVIDERS: ATTEND Pediatrics
DX: K75.0 Abscess of liver (principal)
CPT/HCPCS: 96365; J0696

== ENCOUNTER 2016-12-27 08:40 | Outpatient (CLI) | payer MEDICARE, OTHER ==
[2016-12-27] MEDS ORDERED: SALINE FLUSH 10 ML DISP.SYRIN IVF ONE (09:00)
[2016-12-27] MEDS ORDERED: cefTRIAXone SODIUM 2 GM in 0.9 % SODIUM CHLORIDE 100 ML IV SCH (09:00)
[2016-12-27] MEDS ORDERED: 0.9 % SODIUM CHLORIDE 100 ML IV.SOLN IV ONE (09:00)
[2016-12-27] MEDS ORDERED: HEPARIN SODIUM,PORCINE 30 UNITS INJ IV ONE (09:00)
[2016-12-27] MEDS ORDERED: cefTRIAXone SODIUM 1 GM VIAL ONE (09:00)
== END 2016-12-27 08:42 ==
LOC: INF 08:40
PROVIDERS: ATTEND Pediatrics
DX: K75.0 Abscess of liver (principal)
CPT/HCPCS: 96365; J0696

== ENCOUNTER 2016-12-28 07:52 | Outpatient (CLI) | payer MEDICARE, OTHER ==
[~2016-12-28 07:52] MED LIST changes: -0.9 % SODIUM CHLORIDE 100 ML IV ONE; -cefTRIAXone SODIUM 1 GM VIAL ONE; +cefTRIAXone SODIUM 2 GM in 0.9 % SODIUM CHLORIDE 100 ML IV SCH
[2016-12-28] MEDS ORDERED: SALINE FLUSH 10 ML DISP.SYRIN IVF ONE (08:00)
[2016-12-28] MEDS ORDERED: HEPARIN SODIUM,PORCINE 30 UNITS INJ IV ONE (08:00)
[2016-12-28] MEDS ORDERED: cefTRIAXone SODIUM 1 GM VIAL ONE (08:00)
[2016-12-28] MEDS ORDERED: 0.9 % SODIUM CHLORIDE 100 ML IV.SOLN IV ONE (08:00)
== END 2016-12-28 07:53 ==
LOC: INF 07:52
PROVIDERS: ATTEND Pediatrics
DX: K75.0 Abscess of liver (principal)
CPT/HCPCS: 96365; J0696

== ENCOUNTER 2016-12-29 08:47 | Outpatient (CLI) | payer MEDICARE, OTHER ==
[2016-12-29] MEDS ORDERED: HEPARIN SODIUM,PORCINE 30 UNITS INJ IV ONE (09:00)
[2016-12-29] MEDS ORDERED: 0.9 % SODIUM CHLORIDE 100 ML IV.SOLN IV ONE (09:00)
[2016-12-29] MEDS ORDERED: cefTRIAXone SODIUM 2 GM in 0.9 % SODIUM CHLORIDE 100 ML IV SCH (09:00)
[2016-12-29] MEDS ORDERED: SALINE FLUSH 10 ML DISP.SYRIN IVF ONE (09:00)
[2016-12-29] MEDS ORDERED: cefTRIAXone SODIUM 1 GM VIAL ONE (09:00)
== END 2016-12-29 08:50 ==
LOC: INF 08:47
PROVIDERS: ATTEND Pediatrics
DX: K75.0 Abscess of liver (principal)
CPT/HCPCS: 96365; J0696

== ENCOUNTER 2016-12-30 08:28 | Outpatient (CLI) | payer MEDICARE, OTHER ==
[2016-12-30] MEDS ORDERED: 0.9 % SODIUM CHLORIDE 100 ML IV.SOLN IV ONE (09:00)
[2016-12-30] MEDS ORDERED: cefTRIAXone SODIUM 2 GM in 0.9 % SODIUM CHLORIDE 100 ML IV SCH (09:00)
[2016-12-30] MEDS ORDERED: cefTRIAXone SODIUM 1 GM VIAL ONE (09:00)
[2016-12-30] MEDS ORDERED: SALINE FLUSH 10 ML DISP.SYRIN IVF ONE (09:00)
[2016-12-30] MEDS ORDERED: HEPARIN SODIUM,PORCINE 30 UNITS INJ IV ONE (09:00)
== END 2016-12-30 09:06 ==
LOC: INF 08:28
PROVIDERS: ATTEND Pediatrics
DX: K75.0 Abscess of liver (principal)
CPT/HCPCS: 96365; J0696

== ENCOUNTER 2016-12-31 08:43 | Outpatient (CLI) | payer MEDICARE, OTHER ==
[2016-12-31] MEDS ORDERED: SALINE FLUSH 10 ML DISP.SYRIN IVF ONE (09:00)
[2016-12-31] MEDS ORDERED: HEPARIN SODIUM,PORCINE 30 UNITS INJ IV ONE (09:00)
[2016-12-31] MEDS ORDERED: 0.9 % SODIUM CHLORIDE 100 ML IV.SOLN IV ONE (09:00)
[2016-12-31] MEDS ORDERED: cefTRIAXone SODIUM 1 GM VIAL ONE (09:00)
== END 2016-12-31 08:53 | disposition home or self-care (01) ==
LOC: INF 08:43
PROVIDERS: ATTEND Pediatrics
DX: K75.0 Abscess of liver (principal)
CPT/HCPCS: 96365; J0696

== ENCOUNTER 2017-01-01 10:40 | Outpatient (CLI) | payer MEDICARE, OTHER ==
[~2017-01-01 10:40] MED LIST changes: +0.9 % SODIUM CHLORIDE 100 ML IV.SOLN IV ONE; +HEPARIN SODIUM,PORCINE 30 UNITS INJ IV ONE; +SALINE FLUSH 10 ML DISP.SYRIN IVF ONE; +cefTRIAXone SODIUM 1 GM VIAL ONE
== END 2017-01-01 11:00 ==
LOC: INF 10:40
PROVIDERS: ATTEND Pediatrics
DX: K75.0 Abscess of liver (principal)
CPT/HCPCS: 96365; J0696

== ENCOUNTER 2017-01-02 07:56 | Outpatient (CLI) | payer MEDICARE, OTHER ==
[2017-01-02] MEDS ORDERED: HEPARIN SODIUM,PORCINE 30 UNITS INJ IV ONE (09:00)
[2017-01-02] MEDS ORDERED: cefTRIAXone SODIUM 1 GM VIAL ONE (09:00)
[2017-01-02] MEDS ORDERED: 0.9 % SODIUM CHLORIDE 100 ML IV.SOLN IV ONE (09:00)
[2017-01-02] MEDS ORDERED: SALINE FLUSH 10 ML DISP.SYRIN IVF ONE (09:00)
== END 2017-01-02 08:53 ==
LOC: INF 07:56
PROVIDERS: ATTEND Pediatrics
DX: K75.0 Abscess of liver (principal)
CPT/HCPCS: 96365; J0696

== ENCOUNTER 2017-01-03 08:36 | Outpatient (CLI) | payer MEDICARE, OTHER ==
[2017-01-03] MEDS ORDERED: cefTRIAXone SODIUM 1 GM VIAL ONE (09:00)
[2017-01-03] MEDS ORDERED: SALINE FLUSH 10 ML DISP.SYRIN IVF ONE (09:00)
[2017-01-03] MEDS ORDERED: HEPARIN SODIUM,PORCINE 30 UNITS INJ IV ONE (09:00)
[2017-01-03] MEDS ORDERED: 0.9 % SODIUM CHLORIDE 100 ML IV.SOLN IV ONE (09:00)
== END 2017-01-03 09:02 ==
LOC: INF 08:36
PROVIDERS: ATTEND Pediatrics
DX: K75.0 Abscess of liver (principal)
CPT/HCPCS: 96365; J0696

== ENCOUNTER 2017-01-04 08:29 | Outpatient (CLI) | payer MEDICARE, OTHER ==
[2017-01-04] MEDS ORDERED: HEPARIN SODIUM,PORCINE 30 UNITS INJ IV ONE (09:00)
[2017-01-04] MEDS ORDERED: SALINE FLUSH 10 ML DISP.SYRIN IVF ONE (09:00)
[2017-01-04] MEDS ORDERED: cefTRIAXone SODIUM 2 GM in 0.9 % SODIUM CHLORIDE 100 ML IV SCH (09:00)
[2017-01-04] MEDS ORDERED: cefTRIAXone SODIUM 1 GM VIAL ONE (09:00)
[2017-01-04] MEDS ORDERED: 0.9 % SODIUM CHLORIDE 100 ML IV.SOLN IV ONE (09:00)
== END 2017-01-04 08:31 ==
LOC: INF 08:29
PROVIDERS: ATTEND Pediatrics
DX: K75.0 Abscess of liver (principal)
CPT/HCPCS: 96365; J0696

== ENCOUNTER 2017-11-27 08:08 | Outpatient (CLI) | payer MEDICARE, OTHER | END 2017-11-27 08:10 | LOC: LAB 08:08 | PROVIDERS: ATTEND Pediatrics | DX: Z79.01 Long term (current) use of anticoagulants (principal) | CPT/HCPCS: 36415; 85379 ==